=== PATIENT | male | born 1995 | race Two or more races ===

== ENCOUNTER 2017-01-16 08:21 | Emergency (ER) | payer MEDICAID, OTHER ==
[~2017-01-16] VITALS: Ht 182.9 cm; Wt 170.3 kg
[2017-01-16 09:00] VITALS: BP 120/72
[2017-01-16] MEDS ORDERED: LIDOCAINE VISCOUS 2% 15ML UD PO ONE (09:30)
[2017-01-16] MEDS ORDERED: DONNATAL 5ml ORAL Elix (BELLADONNA ALK-PHENOBARB) PO ONE (09:30)
[2017-01-16] MEDS ORDERED: ALUM & MAG HYDROX-SIMETH LIQ(MAALOX) 30 ML PO ONE (09:30)
[2017-01-16 10:18] LABS: Basophils # (auto) 0 uL; Eosinophils # (auto) 0.4 uL; Eosinophils % (auto) 5.8 % (0.0-7.0); Hematocrit 48.9 % (41.0-53.0); Hemoglobin 16.4 g/dL (13.5-17.5); Lymphocytes # (auto) 0.6 uL; Lymphocytes % (auto) 7.4 % (10.0-50.0); Mean Corpuscular Hemoglobin 28.4 pg (28.0-32.0); Mean Corpuscular Hgb Conc. 33.6 g/dL (32.0-36.0); Mean Corpuscular Volume 84.5 fL (80.0-100.0); Mean Platelet Volume 10.6 fL (6.9-10.8); Monocytes # (auto) 0.2 uL; Monocytes % (auto) 2.6 % (0.0-12.0); Neutrophils # (auto) 6.4 uL; Neutrophils % (auto) 84.2 % (37.0-80.0); Nucleated Red Blood Cells % 0.3 %; Platelet Count (auto) 154 10^3/uL (140-450); White Blood Cell 7.6 10^3/uL (4.4-10.8)
[2017-01-16 10:47] LABS: Albumin 3.9 g/dL (3.4-5.0); Alkaline Phosphatase 100 U/L (45-117); Anion Gap 8 (5-15); Aspartate Aminotransferase 38 U/L (15-37); Bilirubin, Total 0.6 mg/dL (0.2-1.0); Blood Urea Nitrogen 15 mg/dL (7-18); Carbon Dioxide 27 mmol/L (21-32); Chloride 104 mmol/L (98-107); GFR African American 139 mL/min; GFR Non-African American 115 mL/min; Glucose 106 mg/dL (74-106); Potassium 4.1 mmol/L (3.5-5.1); Sodium 139 mmol/L (136-145); Total Protein 8.4 g/dL (6.4-8.2)
== END 2017-01-16 11:10 | disposition home or self-care (01) ==
LOC: ER 08:21
DX: R07.89 Other chest pain (principal); K21.9 Gastro-esophageal reflux disease without esophagitis; F17.210 Nicotine dependence, cigarettes, uncomplicated
CPT/HCPCS: 36415; 71020; 80053; 84484; 85025

== ENCOUNTER 2021-01-07 17:45 | Emergency (ER) | payer MEDICAID ==
[~2021-01-07] VITALS: Ht 182.9 cm; Wt 158.8 kg
[2021-01-07 18:05] VITALS: BP 131/85
== END 2021-01-08 01:58 | disposition left against medical advice (07) ==
LOC: ER 17:45
DX: R51.9 Headache, unspecified (principal); R22.0 Localized swelling, mass and lump, head; Z53.21 Procedure and treatment not carried out due to patient leaving prior to being seen by health care provider